=== PATIENT | male | born 1990 | race Caucasian/White ===

== ENCOUNTER 2017-05-11 15:10 | Emergency (ER) | payer SELFPAY ==
--- NOTE | 2017-05-11 15:48 | UC ---
Laceration HPI - HPI Summary HPI Summary: Patient presents with a laceration to the right thumb that occurred yesterday while at work he cut his left thumb with a knife, he is a clinic cma. She states he cut it with a knife. He states he cleaned it, and he comes in today because he keeps bumping it and popping it open. He reports some pain at the site, and denies any numbness, tingling, or decreased ROM as a result of the injury. - History Of Current Complaint Chief Complaint: UCLaceration Stated Complaint: FINGER LACERATION Time Seen by Provider: 05/11/17 15:26 Hx Obtained From: Patient Laceration Location: Finger Mechanism Of Injury: Sharp Trauma Onset/Duration: Sudden Onset, Lasting Days Aggravating Factors: Movement - Allergies/Home Medications Allergies/Adverse Reactions: Allergies Allergy/AdvReac Type Severity Reaction Status Date / Time Aspirin Allergy Hives/Diff. Verified 05/11/17 15:15 Breathing/I tching Home Medications: Home Medications NK [No Home Medications Reported] 05/11/17 [History Confirmed 05/11/17] PMH/Surg Hx/FS Hx/Imm Hx Previously Healthy: Yes - Surgical History Surgical History: None - Family History Known Family History: Positive: Hypertension - Social History Occupation: Employed Full-time Lives: Alone Alcohol Use: Rare Alcohol Amount: weekends Substance Use Type: None Smoking Status (MU): Former Smoker Type: Smokeless Tobacco Amount Used/How Often: 1 tin per week - Immunization History Most Recent Influenza Vaccination: 2014 Most Recent Tetanus Shot: up to date with 2years Review of Systems Skin: Other - laceration All Other Systems Reviewed And Are Negative: Yes Physical Exam Triage Information Reviewed: Yes Appearance: Well-Appearing Vital Signs: Initial Vital Signs Temp 98.4 F 05/11/17 15:17 Pulse 66 05/11/17 15:17 Resp 17 05/11/17 15:17 Pulse Ox 100 05/11/17 15:17 Vital Signs Reviewed: Yes ENT Exam: Normal Neck exam: Normal Respiratory Exam: Normal Skin Exam: Other - right distal thumb with linear superficial laceration 2.0 cm in length, involving the epeithial tissue only. I could not see any muscle tendon or bone, no foreign body, patient could not sense foreigh body. rom intact in all planes. Neruo without deficits. Laceration Repair - Laceration Repair 1 Description: Linear Laceration Size After Repair: Length (cm) - 2.0 Cleansing Completed Via Routine Prep: Yes Closure Material: Skin Adhesive, SteriStrips Closure Method: Single Layer Laceration Course/Dx - Course/Dx Course Of Treatment: Patient presents s/p laceration of the distal right thumb, it occured 24 hours ago, aand is superfical involving just the epithelial tissue. I was able to inspect a bloodless wound bed and did not see any muscle, tendon, bone or foreigh body. It has been too long a period to suture and was appriopriate for adhesive, and steri-strips applied. DSD, and finger guard provided for comfort and support. No signs or symtoms of infection. Wound care instructions were given and he verbalized understanding of the discharge instructions, discharge home in stable condition. - Differential Dx - Laceration/Wound Differental Diagnoses: Laceration Provider Diagnoses: laceration. adhesive repair. steri strips Discharge - Discharge Plan Condition: Stable Disposition: HOME Patient Education Materials: Laceration (ED), Skin Adhesive Care (ED), Steristrips (ED) Referrals: Eduardo Tucker MD [Primary Care Provider] - Images Hands: 1 - laceration location
== END 2017-05-11 15:44 | disposition home or self-care (01) ==
LOC: UCEAST 15:10
DX: S61.011A Laceration without foreign body of right thumb without damage to nail, initial encounter (principal); W26.0XXA Contact with knife, initial encounter; Y93.G1 Activity, food preparation and clean up; Y92.511 Restaurant or cafe as the place of occurrence of the external cause; Y99.0 Civilian activity done for income or pay; Z88.6 Allergy status to analgesic agent; Z87.891 Personal history of nicotine dependence
CPT/HCPCS: 12001; 99213; G0463

== ENCOUNTER 2017-07-07 08:38 | Emergency (ER) | payer OTHER ==
[2017-07-07] MEDS ORDERED: Ketorolac INJ* 60 MG/2 ML VIAL IM ONE (10:00)
[2017-07-07 10:47] VITALS: BP 132/85
--- NOTE | 2017-07-07 11:08 | RAD ---
HISTORY: Midline tenderness, status post injury COMPARISONS: None TECHNIQUE: Multiple contiguous axial CT scans were obtained of the lumbar spine without intravenous contrast, with coronal and sagittal multiplanar reformations. FINDINGS: SPINAL CANAL: Evaluation of the central canal is limited on CT technique; however, there is no obvious canalicular mass or epidural hemorrhage. ALIGNMENT: The alignment is normal. VERTEBRAL BODIES: The vertebral bodies are preserved in height. The bones are normal in attenuation. JOINTS: There is no subluxation or dislocation. MUSCULATURE: Normal INTERVERTEBRAL DISCS: There is mild diffuse loss of intervertebral disc height throughout the spine. AXIAL IMAGES: T12-L1: There is no osseous neural foraminal narrowing or central canal stenosis. L1-L2: There is no osseous neural foraminal narrowing or central canal stenosis. L2-L3: There is no osseous neural foraminal narrowing or central canal stenosis. L3-L4: There is no osseous neural foraminal narrowing or central canal stenosis. L4-L5: There is a broad-based disc bulge. There is no osseous neural foraminal area or central canal stenosis. L5-S1: There is a broad-based disc bulge. There is no osseous neural foraminal narrowing or central canal stenosis. SOFT TISSUES: The visualized soft tissues of the abdomen are unremarkable. OTHER: None IMPRESSION: 1. DEGENERATIVE DISC DISEASE. 2. NO ACUTE OSSEOUS INJURY TO THE LUMBAR SPINE. 3. NO OSSEOUS NEURAL FORAMINAL AREA OR CENTRAL CANAL STENOSIS.
--- NOTE | 2017-07-22 09:13 | UC ---
Peter Diehl Thomas, scribed for Alysha Wilkinson DO on 07/07/17 at 0929 . Back Pain HPI - HPI Summary HPI Summary: The pt is a 26 y/o presenting [place] [facility] [place] low back pain s/p an injury that occurred yesterday while he was working out with 40-pound kettle bells. He attributes his injury to bad form. The pain had sudden onset and the patient states I heard something pop. The pain is concentrated in his low back. The pain radiates to his bilateral latissimus dorsi and bilateral upper thighs. The pain is constant. The pt rates the pain 8/10. The pain is aggravated by changes in position and deep breaths. The pain is alleviated by nothing. The patient has treated the pain with nothing [employer]. The patients right foot was numb yesterday, although he denies any numbness today. Pt denies weakness, tingling, bowel or bladder incontinence, and saddle anesthesia. Pt also denies F/S/C, N/V/ D, diaphoresis, SOB, CP, abd pain, and urinary symptoms. PMHx includes previous back injuries. - History of Current Complaint Chief Complaint: UCBackPain Stated Complaint: BACK PAIN Time Seen by Provider: 07/07/17 09:02 Hx Obtained From: Patient Onset/Duration: Sudden Onset, Lasting Days - 1, Still Present Timing: Constant Severity Currently: Severe Pain Intensity: 8 Pain Scale Used: 0-10 Numeric Back Pain: Is Discrete @ - low Aggravating Factor(s): Other - Changes in position, deep breaths Alleviating Factor(s): Nothing Associated Signs And Symptoms: Negative: Weakness, Numbness, Tingling, Bladder Incontinence, Bowel Incontinence, Other - saddle anesthesia Related History: Previous Back Injury - Allergies/Home Medications Allergies/Adverse Reactions: Allergies Allergy/AdvReac Type Severity Reaction Status Date / Time Aspirin Allergy Hives/Diff. Verified 07/07/17 08:53 Breathing/I tching Home Medications: Home Medications Alpha Brain 1 tab PO DAILY 07/07/17 [History Confirmed 07/07/17] Multiple Vitamin [Multi Vitamin] 1 tab PO DAILY 07/07/17 [History Confirmed 05/15] PMH/Surg Hx/FS Hx/Imm Hx Previously Healthy: Yes - Low back pain. NEGATIVE PMHX: DM, HTN - Surgical History Surgical History: None - Family History Known Family History: Positive: Hypertension, Other - CA - Social History Occupation: Employed Full-time Alcohol Use: Rare Alcohol Amount: weekends Substance Use Type: None Smoking Status (MU): Former Smoker Type: Smokeless Tobacco Amount Used/How Often: 1 tin per week - Immunization History Most Recent Influenza Vaccination: 05/15 Most Recent Tetanus Shot: up to date with 2years Review of Systems Constitutional: Negative Skin: Negative Respiratory: Negative Gastrointestinal: Negative Genitourinary: Negative Musculoskeletal: Other: - Back pain Neurological: Other - NEGATIVE: numbness, weakness, tingling Is Patient Immunocompromised?: No All Other Systems Reviewed And Are Negative: Yes Physical Exam Triage Information Reviewed: Yes Appearance: Well-Appearing, No Pain Distress, Well-Nourished Vital Signs: Initial Vital Signs Temp 99.8 F 07/07/17 08:50 Pulse 96 07/07/17 08:50 Resp 18 07/07/17 08:50 BP 147/90 07/07/17 08:50 Pulse Ox 98 07/07/17 08:50 Vital Signs Reviewed: Yes Eyes: Positive: Conjunctiva Clear. Negative: Discharge ENT: Positive: Hearing grossly normal. Negative: Muffled voice Neck exam: Normal Neck: Positive: Supple Respiratory: Positive: Lungs clear, Normal breath sounds, No respiratory distress, No accessory muscle use Cardiovascular: Positive: RRR, No Murmur Abdomen Description: Positive: Nontender, Soft Musculoskeletal Exam: Normal Neurological: Positive: Alert, Muscle Tone Normal Psychological Exam: Normal Psychological: Positive: Age Appropriate Behavior Skin Exam: Normal Skin: Positive: Other - Warm, dry, normal color Diagnostics - Laboratory Diagnostic Studies Completed/Ordered: CT L-Spine. Interpreted by radiologist. Impresssion: 1. DEGENERATIVE DISC DISEASE. 2. NO ACUTE OSSEOUS INJURY TO THE LUMBAR SPINE. 3. NO OSSEOUS NEURAL FORAMINAL AREA OR CENTRAL CANAL STENOSIS. ED physician has reviewed this report and agrees. Re-Evaluation - Re-Evaluation First Eval Re-Evaluation Time: 11:52 Change: Improved Comment: He is feelings somewhat better after the injection. Back Pain Course/Dx - Course Course Of Treatment: Medications reviewed this visit. High blood pressure noted. The patient has been encouraged to stop using e-cigarettes. - Differential Dx/Diagnosis Differential Diagnosis/HQI/PQRI: Fracture, Herniated Disc, Renal Colic, Strain, Sprain Provider Diagnoses: low back strain, Elevated blood pressure without a diagnosis of hypertension. Discharge - Discharge Plan Condition: Stable Disposition: HOME Prescriptions: Cyclobenzaprine TAB* [Flexeril TAB*] 10 mg PO TID PRN #30 tab PRN Reason: Pain HYDROcodone/ACETAMIN 5-325 MG* [[place] 5-325 TAB*] 1 tab PO Q6H PRN #14 tab MDD 4 TABS PRN Reason: Pain Naproxen TAB* [Naprosyn 250 mg TAB*] 500 mg PO BID #14 tab Patient Education Materials: Low Back Strain (ED) Forms: *Work Release Referrals: Eduardo Tucker MD [Primary Care Provider] - (FOLLOW UP ON TUESDAY PLANNED) Additional Instructions: ORAL NARCOTIC MEDICATION: You have been given a prescription for pain control. This medication is a narcotic. It's best taken with food, as nausea can result if taken on an empty stomach. Don't operate machinery or drive within six hours of taking this medication. Do not combine this medicine with alcohol, or with any medication which can cause sedation (such as cold tablets or sleeping pills) unless you get permission from the physician. Narcotics tend to cause constipation. If possible, drink plenty of fluids and eat a diet high in fiber and fruits. ANTI-INFLAMMATORY MEDICATION: You have received a prescription for an antiinflammatory agent. This is an excellent, safe drug for pain control. In addition, it has potent antiinflammatory effects which are beneficial, especially in the treatment of injuries, arthritis, or tendonitis. It's best to take this medicine with food. Persons with ulcer disease or allergy to aspirin should notify their physician of this before taking this drug. Take the medication exactly as prescribed. Don't take additional doses unless instructed to do so by your doctor. If you develop wheezing, shortness of breath, hives, faintness, stomach pain, vomiting, or dark black stools, return for re-evaluation at once. MUSCLE RELAXERS: Muscle relaxing medications are usually prescribed for acute muscle spasm or injury to the neck and back. They are often combined with antiinflammatory pain medication for increased relief. You may stop the muscle relaxer when the pain and stiffness have improved. Start the medication again if spasms recur. Muscle relaxers may cause drowsiness, especially with the first dose. Do not operate machinery or drive while under the effects of the medication. Most muscle relaxers last up to 24 hours. Do not combine the medication with alcohol. YOU WOULD LIKELY BENEFIT FROM OSTEOPATHIC MANIPULATION. WE RECOMMEND THAT YOU FIND AN OSTEOPATHIC PHYSICIAN IN YOUR AREA WHO DOES LYMPHATIC, MYOFACIAL AND VISCERAL WORK Your blood pressure was elevated at this visit. That does not mean you have hypertension, it is probably due to your current condition. Please follow up with your primary care provider. The documentation as recorded by the Peter nixon Thomas accurately reflects the service I personally performed and the decisions made by me, Alysha Wilkinson DO.
== END 2017-07-07 12:08 | disposition home or self-care (01) ==
LOC: UCEAST 08:38
DX: S39.012A Strain of muscle, fascia and tendon of lower back, initial encounter (principal); X50.3XXA Overexertion from repetitive movements, initial encounter; Y93.B9 Activity, other involving muscle strengthening exercises; Y92.9 Unspecified place or not applicable; R03.0 Elevated blood-pressure reading, without diagnosis of hypertension; M51.36 Other intervertebral disc degeneration, lumbar region; Z88.6 Allergy status to analgesic agent; Z87.891 Personal history of nicotine dependence
CPT/HCPCS: 72131; 81003; 87086; 96372; 99212; G0463; J1885

== ENCOUNTER 2017-12-08 19:27 | Emergency (ER) | payer OTHER ==
[2017-12-08] MEDS ORDERED: Ondansetron ODT TAB* 4 MG PO ONE ×3 (20:36→21:13)
--- NOTE | 2017-12-08 20:37 | UC ---
Nausea/Vomiting/Diarrhea HPI - HPI Summary HPI Summary: 27 y/o male presents to the urgent care c/o nausea, vomiting, diarrhea, body aches and fever since last night. Pt had fever of 101.3 today and 6 episodes of vomiting and 2 episodes of diarrhea since last night. Pt states her daughter had similar symptoms 2 days ago, but her symptoms have resolved today. Pain is 4/10 w/ cramping abdominal pain that is relief w/ watery diarrhea and gas. Pt also states he works for the [employer] and is schedule to be on a drill outside for 5 days this weekend. Pt is requesting a note for work. He feels lightheaded when he stands up at times. . Pt has been drinking water, but has decrease appetite. He doesn't recall eating outside, no Hx of recent travel, Pt denies fever , sob, chest pain, dizziness, DIAZ, hematoemesis,or hematochezia. - History of Current Complaint Chief Complaint: UCGeneralIllness Stated Complaint: VOMITING, FEVER, AND ACHES Time Seen by Provider: 12/08/17 20:15 Hx Obtained From: Patient Onset/Duration: Gradual Onset, Lasting Days - 1 day, Still Present, Worse Since - today Timing: Intermittent Episodes Lasting: Severity Initially: Mild Severity Currently: Mild Pain Intensity: 5 Pain Scale Used: 0-10 Numeric Location: Diffuse - Allergies/Home Medications Allergies/Adverse Reactions: Allergies Allergy/AdvReac Type Severity Reaction Status Date / Time aspirin Allergy Severe HIVES/DYSPN Verified 12/08/17 19:47 EA/ITCHING Home Medications: Home Medications Atomoxetine HCl [Strattera] 40 mg PO DAILY 12/08/17 [History Confirmed 12/08/17] Gabapentin CAP(*) [Neurontin 400 mg CAP(*)] 800 mg PO QID 12/08/17 [History Confirmed 12/08/17] Mv-Mn/C/Glutamin/Lysin/[id number] [Airborne Gummies] 1 chw PO PRN 12/08/17 [History ] PMH/Surg Hx/FS Hx/Imm Hx Previously Healthy: Yes Other Neurological History: Lwer back bulging disc Psychological History: Anxiety - Surgical History Surgical History: None - Family History Known Family History: Positive: Hypertension Family History: CA - Social History Occupation: Employed Full-time Lives: With Family Alcohol Use: Rare Alcohol Amount: weekends Substance Use Type: None Smoking Status (MU): Current Every Day Smoker Type: Smokeless Tobacco Amount Used/How Often: 09/01 PPD - Immunization History Most Recent Influenza Vaccination: 05/15 Most Recent Tetanus Shot: up to date with 2years Review of Systems Constitutional: Fever, Chills, Fatigue, Other - body aches Skin: Negative Eyes: Negative ENT: Sore Throat, Nasal Discharge Respiratory: Negative Gastrointestinal: Abdominal Pain, Vomiting, Nausea Motor: Negative Neurovascular: Negative Musculoskeletal: Negative Neurological: Headache Psychological: Negative Is Patient Immunocompromised?: No All Other Systems Reviewed And Are Negative: Yes Physical Exam - Summary Physical Exam Summary: Vital Signs Reviewed: Yes General:Patient is a well developed and nourished mael who is sitting comfortable in the examining table. Patient is not in any acute respiratory distress. Eyes: Positive: Conjunctiva Clear - PERRLA, EOMI, fundi grossly normal ENT: Positive: Normal ENT inspection, Hearing grossly normal, Pharynx normal, TMs normal Neck: Positive: Supple, Nontender, No Lymphadenopathy Respiratory: Positive: Chest non-tender, Lungs clear, Normal breath sounds, No respiratory distress Cardiovascular: Positive: RRR,S1 and S2 present, No Murmur, Pulses Normal, Brisk Capillary Refill Abdomen Description: Positive: Nontender, Other: - Abd: Flat with no distention. No surface trauma, scars, incisions. hyperactive bowel sounds present in all four quadrants. No tenderness, guarding, rigidity to palpation. No masses palpated, no pulsation in epigastric area. No organomegaly. Negative [place] signs. No periumbilical tenderness. No rebound in the lower quadrants. NT over [place]neys point. Good femoral pulses bilaterally. No hernia noted. No CVAT bilaterally Musculoskeletal: Positive: Strength Intact, ROM Intact, No Edema,FROM in all major joints, no edema, no cyanosis or clubbing. Neuro: Alert and oriented x 3. No acute neurological deficits. Speech is normal. Psychological: WNL Skin: Dry and warm Triage Information Reviewed: Yes Vital Signs: Initial Vital Signs Temp 99.3 F 12/08/17 19:41 Pulse 112 12/08/17 19:41 Resp 18 12/08/17 19:41 BP 114/80 12/08/17 19:41 Pulse Ox 96 12/08/17 19:41 Naus/Vom/Diarrhea Course/Dx - Course Course Of Treatment: 27 y/o male presents to the urgent care c/o nausea, vomiting, diarrhea, body aches and fever since last night. Pt had fever of 101.3 today and 6 episodes of vomiting and 2 episodes of diarrhea since last night. Pt states her daughter had similar symptoms 2 days ago, but her symptoms have resolved today. Pain is 4/10 w/ cramping abdominal pain that is relief w/ watery diarrhea and gas. Pt also states he works for the [employer] and is schedule to be on a drill outside for 5 days this weekend. Pt is requesting a note for work. He feels lightheaded when he stands up at times. . Pt has been drinking water, but has decrease appetite. He doesn't recall eating outside, no Hx of recent travel, Pt denies fever , sob, chest pain, dizziness, DIAZ, hematoemesis,or hematochezia. Hx obtained. Pt is mildly tachycardic and w/ hyperactive bowel sounds, abdomen is soft and non tender on examination,also edematous and erythematous nasal mucosa w/ clear nasal discharge.Influenza A&B ordered: negative. Pt feeling w/ nausea. Pt given Zofran PO for nausea. Pt tolerated well medication and felt better. Pt probably w/ a viral gastroenteritis. Pt Strongly advised to increase fluid intake w/ Gatorade or Pedialyte, eat soft meals, rest. Pt Rx Zofran PO and advised to take Imodium PO OTC tomorrow if diarrhea has not resolved. However if symptoms worsen and abdominal pain develops to go Immediately to the ER for further management. Pt explained D/C instructions. Pt understood and agreed w/ plan of care. Pt left the clinic ambulating,hemodynamically stable, A&OX3. - Differential Dx/Diagnosis Differential Diagnoses - Male: Appendicitis, Irritable Bowel Syndrome, Enterocolitis, Gastroenteritis (Viral), Gastroenteritis (Bacterial), Vomiting, Diarrhea, Colitis, Gastritis, Dehydration Provider Diagnoses: 1- Acute gastroenteritis. 2-Nausea and vomiting. 3-Acute diarrhea Condition At Discharge: Stable Discharge - Sign-Out/Discharge Documenting (check all that apply): Discharge - Discharge Plan Condition: Stable Disposition: HOME Prescriptions: Acetaminophen TAB* [Tylenol TAB*] 650 mg PO Q6H PRN #20 tab PRN Reason: Fever Ondansetron ODT TAB* [Zofran 4 MG Odt TAB*] 4 mg PO Q6H PRN #10 tab.odt PRN Reason: Vomiting Patient Education Materials: Gastroenteritis (ED), Acute Nausea and Vomiting ( ED) Forms: *Work Release Referrals: Eduardo Tucker MD [Primary Care Provider] - 3 Days Additional Instructions: 1- Please increase fluid intake . Take Pedialyte OTC or Gatorade to hydrate yourself. Eat soft meals, rest. Avoid any strenuous exercise. 2- Influenza A&B is negative 3- Take Tylenol PO as directed to alleviate fever, and pain 4- If you develops fever or severe abdominal pain w/ recurrent episodes of diarrhea and vomiting please go to the ER for further management. 5- f/u with your PCP if diarrhea or vomiting w/ medication not resolving in 2-3 days - Billing Disposition and Condition Condition: STABLE Disposition: HOME
[2017-12-08 21:28] VITALS: BP 123/73
== END 2017-12-08 21:28 | disposition home or self-care (01) ==
LOC: UCEAST 19:27
DX: K52.9 Noninfective gastroenteritis and colitis, unspecified (principal); Z88.6 Allergy status to analgesic agent; F41.9 Anxiety disorder, unspecified; F17.210 Nicotine dependence, cigarettes, uncomplicated
CPT/HCPCS: 87502; 99212; A9270-GY; G0463

== ENCOUNTER 2019-06-22 10:01 | Emergency (ER) | payer OTHER ==
[2019-06-22 10:58] VITALS: BP 123/78
--- NOTE | 2019-06-22 12:13 | UC ---
Respiratory Complaint HPI - HPI Summary HPI Summary: 28-year-old male with multiple complaints of chronic hemorrhoids which she has had for most of his adult life. He states when he lifts weights he feels more any feels like there is sticking out. He also states that he's had some wheezing at night although he has not had any cold symptoms. He denies any productive cough. He does smoke as well as vape. He also wanted a refill of gabapentin however he has not taken that in more than a year. - History of Current Complaint Chief Complaint: [facility] Stated Complaint: PERSONAL Time Seen by Provider: 06/22/19 11:13 Hx Obtained From: Patient Onset/Duration: Gradual Onset Timing: Constant Severity Initially: Mild Severity Currently: Mild Pain Intensity: 4 Character: Cough: Nonproductive Aggravating Factors: Other - Patient states at night he feels like he can't quite take a full breath and his stated that he has been wheezing lately at night. Alleviating Factors: Nothing Associated Signs And Symptoms: Positive: Wheezing - Allergies/Home Medications Allergies/Adverse Reactions: Allergies Allergy/AdvReac Type Severity Reaction Status Date / Time aspirin Allergy Severe HIVES/DYSPN Verified 06/22/19 11:02 EA/ITCHING cats Allergy Hives/Diff. Uncoded 06/22/19 11:02 Breathing/I tching Home Medications: Home Medications Multivitamin [Multivitamins] 1 tab PO DAILY 06/22/19 [History Confirmed 06/22/19 ] Testosterone Propionate 1 dose PO ONCE PRN 06/22/19 [History Confirmed 06/22/19] PMH/Surg Hx/FS Hx/Imm Hx Previously Healthy: Yes GI/ History: Other - Patient has chronic hemorrhoids. Psychological History: Anxiety - Surgical History Surgical History: None - Family History Known Family History: Positive: Hypertension, Other - CA Family History: CA - Social History Lives: With Family Alcohol Use: Weekly Alcohol Amount: weekends Substance Use Type: Marijuana Smoking Status (MU): Current Every Day Smoker Type: eCigarettes, Smokeless Tobacco Amount Used/How Often: 1/4 PPD, and vapes Household Exposure Type: Cigarettes - Immunization History Most Recent Influenza Vaccination: 05/15 Most Recent Tetanus Shot: up to date with 2years Review of Systems All Other Systems Reviewed And Are Negative: Yes Respiratory: Positive: Cough - Occasional nonproductive cough and wheezing at night. Gastrointestinal: Positive: Other - Patient has chronic hemorrhoids which flare up any time and he states when he exercises he can feel them outside the rectum. Is Patient Immunocompromised?: No Physical Exam Triage Information Reviewed: Yes Appearance: Well-Appearing, No Pain Distress, Well-Nourished Vital Signs: Initial Vital Signs Temp 98 F 06/22/19 10:51 Pulse 51 06/22/19 10:51 Resp 18 06/22/19 10:51 BP 123/78 06/22/19 10:51 Pulse Ox 100 06/22/19 10:51 Vital Signs Reviewed: Yes Eyes: Positive: Conjunctiva Clear Respiratory: Positive: Lungs clear, Normal breath sounds, No respiratory distress, No accessory muscle use Cardiovascular: Positive: RRR, No Murmur, Pulses Normal, Brisk Capillary Refill Abdomen Description: Positive: Nontender, No Organomegaly, Soft. Negative: CVA Tenderness (R), CVA Tenderness (L), Hepatomegaly, Splenomegaly Bowel Sounds: Positive: Present Musculoskeletal Exam: Normal Neurological Exam: Normal Psychological Exam: Normal Skin Exam: Normal Skin: Positive: Other - I do not visualize any rectal hemorrhoids at this point in time. Respiratory Course/Dx - Course Course Of Treatment: Chest x-ray:FINDINGS: CARDIOMEDIASTINAL SILHOUETTE: The cardiomediastinal silhouette is normal. RICKY: The ricky are normal. PLEURA: The costophrenic angles are sharp. No pleural abnormalities are noted. LUNG PARENCHYMA: There is hyperinflation with flattening of the diaphragm and expansion of the AP diameter of the chest. ABDOMEN: The upper abdomen is clear. There is no subphrenic gas. BONES AND SOFT TISSUES: No bone or soft tissue abnormalities are noted. OTHER: None. IMPRESSION: HYPERINFLATION, WHICH CAN BE SEEN WITH COPD OR REACTIVE AIRWAY DISEASE NO ACTIVE CARDIOPULMONARY DISEASE. I advised the patient he should stop smoking and vaping. I gave him an albuterol inhaler to use 2 puffs every 4-6 hours as needed for wheezing or tight cough. I referred him back to his primary care provider for further care with regard to his hemorrhoids. I did send in a prescription for hydrocortisone suppository to use twice a day as needed with a box of 12. I did further advised him he should see a tripe scraper. The patient is agreeable with this plan of action. - Differential Dx/Diagnosis Provider Diagnosis: Reactive airway disease, Hemorrhage Discharge ED - Sign-Out/Discharge Documenting (check all that apply): Patient Departure All imaging exams completed and their final reports reviewed: Yes - Discharge Plan Condition: Good Disposition: HOME Prescriptions: Albuterol HFA INHALER* [Ventolin HFA Inhaler*] 2 puff INH Q4H PRN 5 Days #1 mdi PRN Reason: Wheezing Patient Education Materials: Hemorrhoids (DC), Reactive Airways Disease (ED) Forms: *Work Release Referrals: Eduardo Tucker MD [Primary Care Provider] - Additional Instructions: I sent in a prescription for a hydrocortisone suppository to use twice a day as needed for hemorrhoids. Use your albuterol inhaler 2 puffs every 4-6 hours as needed for shortness of breath or wheezing. Definite follow-up with your primary care provider for further care and for refill of your gabapentin. It may be necessary to follow-up with a tripe scraper for further treatment of hemorrhoids but you may need to go through your primary care provider. - Billing Disposition and Condition Condition: GOOD Disposition: Home
== END 2019-06-22 12:20 | disposition home or self-care (01) ==
LOC: UCEAST 10:01
DX: R58 Hemorrhage, not elsewhere classified (principal); F17.210 Nicotine dependence, cigarettes, uncomplicated; K64.9 Unspecified hemorrhoids; Z88.8 Allergy status to other drugs, medicaments and biological substances; Z91.09 Other allergy status, other than to drugs and biological substances
CPT/HCPCS: 71046; 99212; G0463